=== PATIENT | female | born 1975 | race Caucasian/White ===

== ENCOUNTER 2020-11-13 08:45 | Outpatient (CLI) | payer OTHER | END 2020-11-13 23:59 | disposition home or self-care (01) | LOC: CFH 08:45 | PROVIDERS: ATTEND Obstetrics & Gynecology | DX: Z12.31 Encounter for screening mammogram for malignant neoplasm of breast (principal); E04.2 Nontoxic multinodular goiter; N63.10 Unspecified lump in the right breast, unspecified quadrant; N60.02 Solitary cyst of left breast; N60.01 Solitary cyst of right breast | CPT/HCPCS: 76536; 76641; 77063; 77067 ==